=== PATIENT | female | born 1955 | race Caucasian/White ===

== ENCOUNTER 2017-06-05 15:56 | Emergency (ER) | END 2017-06-06 01:30 | disposition home or self-care (01) ==

== ENCOUNTER 2018-09-01 07:40 | Day surgery (SDC) | payer OTHER ==
--- NOTE | 2018-08-31 14:25 | PREOPHP ---
DATE OF ADMISSION: 09/01/2018 HISTORY OF PRESENT ILLNESS: A 63-year-old female patient with a long history of chronic right otitis media. She has undergone multiple surgical procedures on the right ear including placement of myrin gotomy tubes as recently as 01/2015. The patient was followed in the office and right serous otitis media was noted in 01/2018. This was treated medically without relief. The patient is now admitted to the hospital for revision right ear surgery to include possible tympanoplasty, possible right myri ngotomy tube placement. PAST MEDICAL HISTORY: None. DRUG ALLERGIES: VITAMIN C. MEDICATIONS: Statins. PRIOR SURGERY: Multiple prior surgeries. CLOTTING DISORDERS: None. HABITS: Alcohol, tobacco, recreational drugs: None. PHYSICAL EXAMINATION: GENERAL: Well-developed, well-nourished female patient in no acute distress. HEENT: Head: Normocephalic. No masses or deformities. Ears and tympanic membranes: Right serous otitis media with adhesion of the tympanic membrane to the middle ear. Nose: Clear. Oropharynx: C lear. NECK: No masses or adenopathy. CHEST: Clear to P and A. HEART: Regular sinus rhythm without murmur. ABDOMEN: Soft. Bowel sounds are normal. No masses or megaly. EXTREMITIES: Full range of motion without deformity. NEUROLOGIC: Physiologic. PELVIC AND RECTAL: Not done. IMPRESSION: Right otitis perforation. RECOMMENDATIONS: Admit for surgery. Dictated By: SINAI SOMMERS/BERENICE Conf#: [id number] DID#: [id number]
[~2018-09-01] VITALS: Ht 147.3 cm; Wt 94.4 kg
[2018-09-01] VITALS (14 sets, daily range): BP systolic 104–155; BP diastolic 60–82; PULSE 70–84; RESP 16–17; Ht 147.3 cm; Wt 94.4 kg
[~2018-09-01 07:40] MED LIST: ALEN35TA12 PO; ETOMIDATE 20 MG INJ ONE; HYDR-4011 PO; METO-407 PO; MYCO500T PO; SIMV20TA2 PO; TACR1CAP26 PO; TRAM50TA2 PO
[2018-09-01] MEDS ORDERED: METO-336 ORAL (08:19)
[2018-09-01] MEDS ORDERED: MYCO250C3 ORAL (08:19)
[2018-09-01] MEDS ORDERED: LACTATED RINGER'S 1,000 ML IV SCH (09:30)
--- NOTE | 2018-09-01 09:49 | SIPON ---
Date/Time of Note Date/Time of Note DATE: 09/01/18 TIME: 09:48 Operative Report Preoperative Diagnosis chronic r om Postoperative Diagnosis same Operation/Procedure Performed r tympano Surgeon nemo signature line salon assistant none Anesthesia: general Estimated blood loss: minimal Transfusion Required none Specimen brayden Grafts/Implants none Complications none SINAI DUENAS MD September 01, 2018 09:49
--- NOTE | 2018-09-01 10:12 | PREAC ---
Date/Time of Note Date/Time of Note DATE: 09/01/18 TIME: 10:09 Anesthesia Eval and Record Evaluation Time Pre-Procedure Interview DATE: 09/01/18 TIME: 10:09 Age 63 Sex female NPO: 8 hrs Preoperative diagnosis Chronic ear infection with perforated tympanic Planned procedure Tympanoplasty Past Medical History Past Medical History: Includes Cardio: HTN, Dyslipidemia Renal: CKD, ESRD on dialysis GI: Morbid obesity Surgery & Anesthesia Issues No known issue Meds Anticoagulation: No Beta Bobbi within 24 hr: Yes Reported Medications Metoprolol Succinate* (Toprol XL*) 100 Mg Tab.sr.24h, 1 TAB ORAL DAILY 09/01/18 Mycophenolate Mofetil* (Cellcept*) 250 Mg Capsule, 3 CAP ORAL BID 09/01/18 Tacrolimus* (Prograf*) 1 Mg Capsule, 1 MG PO Q12, CAP 07/26/14 Simvastatin (Simvastatin) 20 Mg Tablet, 20 MG PO HS, TAB 07/26/14 Alendronate Sodium* (Alendronate Sodium*) 35 Mg Tablet, 35 MG PO Q7D, TAB 07/26/14 Discontinued Reported Medications Tramadol HCl (Tramadol HCl) 50 Mg Tab, 50 MG PO BID, TAB 07/26/14 Mycophenolate Mofetil* (Cellcept*) 500 Mg Tablet, 500 MG PO BID, TAB 07/26/14 Metoprolol Tartrate* (Lopressor*) 100 Mg Tablet, 100 MG PO DAILY, TAB 07/26/14 Discontinued Scripts Hydrocodone/Acetaminophen ([place] 5-325 Tablet) 1 Each Tablet, 1 TAB PO Q6H PRN for PAIN, #15 TAB Prov:ABDULAZIZ MCDERMOTT MD 06/06/17 Current Medications Lactated Ringer's 1,000 ml @ 25 mls/hr Q24H IV Last administered on 09/01/18at 09:17; Admin Dose 25 MLS/HR; Start 09/01/18 at 09:30 Meds reviewed: Yes Allergies Coded Allergies: ascorbic acid (Verified Allergy, Severe, 09/01/18) Allergies Reviewed: Yes Labs/Studies Labs Reviewed: Reviewed by anesthesiologist test: N/A Studies: ECG Pre-procedure Exam Last vitals Vital Signs Date Temp Pulse Resp B/P (MAP) Pulse Ox O2 O2 Flow FiO2 Time Delivery Rate 09/01/18 96.8 70 16 144/78 97 Room Air 08:57 (100) Airway: Adequate mouth opening, Adequate thyromental dist Mallampati: Mallampati III Teeth: Normal Lung: Normal Heart: Normal ASA Physical Status ASA physical status: 3 Emergency: None Planned Anesthetic General/MAC: LMA Planned Pain Management Parenteral pain med Pre-operative Attestations Prior to commencing anesthesia and surgery, the patient was re-evaluated, there was verification of: *The patient's identity *The results of appropriate recent lab work and preoperative vital signs *The above evaluation not changing prior to induction *Anesthetic plan, risk benefits, alternative and complications discussed with patient/family; questions answered; patient/family understands, accepts and wishes to proceed. ERIK WILSON MD September 01, 2018 10:12
[2018-09-01] MEDS ORDERED: FENTAnyl 50 MCG/ML VIAL ONE (10:14)
[2018-09-01] MEDS ORDERED: MIDAZOLAM 1 MG/ML 2 ML INJ ONE (10:14)
[2018-09-01] MEDS ORDERED: LIDOCAINE 2% (SDV) 5 ML INJ ONE (10:58)
[2018-09-01] MEDS ORDERED: ONDANSETRON 4 MG INJ ONE (10:58)
[2018-09-01] MEDS ORDERED: PROPOFOL 20 ML ONE (10:58)
--- NOTE | 2018-09-01 11:03 | SIPON ---
Date/Time of Note Date/Time of Note DATE: 09/01/18 TIME: 11:02 Operative Report Preoperative Diagnosis chronic r om Postoperative Diagnosis saame Operation/Procedure Performed r tympano Surgeon nemo signature line dental hygiene administrative assistant nonr Anesthesia: general Estimated blood loss: none Transfusion Required none Specimen none Grafts/Implants none Complications none SINAI DUENAS MD September 01, 2018 11:03
--- NOTE | 2018-09-01 11:10 | PAC ---
Date/Time of Note Date/Time of Note DATE: 09/01/18 TIME: 11:08 Post-Anesthesia Notes Post-Anesthesia Note Last documented vital signs Vital Signs Date Temp Pulse Resp B/P (MAP) Pulse Ox O2 O2 Flow FiO2 Time Delivery Rate 09/01/18 96.8 70 16 144/78 97 Room Air 08:57 (100) Activity: WNL Respiratory function: WNL Cardiovascular function: WNL Mental status: Baseline Pain reasonably controlled: Yes Hydration appropriate: Yes Nausea/Vomiting absent: Yes Comments BP:154/75, P:82, Spo2:100%, T:98,8 ERIK WILSON MD September 01, 2018 11:10
[2018-09-01] MEDS ORDERED: HYDROCODONE/APAP (7.5/325) TAB PO PRN (11:30)
--- NOTE | 2018-09-01 16:12 | OPR ---
DATE OF OPERATION: 09/01/2018 PREOPERATIVE DIAGNOSIS: Chronic right otitis perforata. POSTOPERATIVE DIAGNOSIS: Chronic right otitis perforata. PROCEDURE PERFORMED: Right tympanoplasty with placement of myringotomy tubes. OPERATION: The patient was brought to the operating room under parenteral sedation, general anesthes ia by LMA. Right ear prepped and draped in the usual manner and examined with a [employer] operating micr oscope. There had been multiple prior ear tube operations and the tympanic membrane was scarred, per forated anteriorly, inferiorly and adhesed to the promontory. The posterior tympanomeatal flap was s harply incised and elevated with exposure of the contents of the middle ear. Adhesions were lysed sh arply with a Bellucci scissors. The tympanic membrane was lifted from the promontory and a [employer] 0.4 cm graft was placed on the promontory. The anterior middle ear space was then suctioned free of a thick fluid. A myringotomy tube was placed and a myringotomy incision. The tympanomeatal flap wa s laid back into position. Gelfoam filled the ear canal as followed by a light dressing to complete the procedure. The patient awakened in the operating room and returned to recovery in excellent cond ition. ESTIMATED BLOOD LOSS: Nil. COMPLICATIONS: None. Dictated By: SINAI SOMMERS/BERENICE Conf#: [id number] DID#: [id number]
== END 2018-09-01 13:49 | disposition home or self-care (01) ==
LOC: SDS 07:40
PROVIDERS: ATTEND Otolaryngology Otolaryngology/Facial Plastic Surgery
DX: H66.91 Otitis media, unspecified, right ear (principal)
CPT/HCPCS: 69436; J2250; J2405; J3010; L8699; Z7512; Z7610